=== PATIENT | female | born 1995 | race Caucasian/White ===

== ENCOUNTER 2021-08-04 07:41 | Emergency (ER) | payer OTHER ==
[~2021-08-04] VITALS: Ht 160 cm; Wt 113.6 kg
[2021-08-04 07:44] VITALS: BP 152/87
[2021-08-04] MEDS ORDERED: KETOROLAC TROMETHAMINE 60 MG/2 ML VIAL IM ONE (08:15)
[2021-08-04] MEDS ORDERED: ACETAMINOPHEN/CODEINE 300-30 MG TABLET PO ONE (08:15)
[2021-08-04] MEDS ORDERED: CEPH-558 PO (08:26)
[2021-08-04] MEDS ORDERED: ACET-2080 PO (08:26)
[2021-08-04] MEDS ORDERED: IBUP-1554 PO (08:26)
== END 2021-08-04 08:44 | disposition home or self-care (01) ==
LOC: EMS 07:47
DX: J02.9 Acute pharyngitis, unspecified (principal); H92.01 Otalgia, right ear
CPT/HCPCS: 87430; 96372; 99283; J1885